=== PATIENT | male | born 1935 | race African-American/Black ===

== ENCOUNTER 2023-06-28 14:49 | Emergency (ER) | payer MEDICARE, MEDICAID ==
[~2023-06-28] VITALS: Ht 165.1 cm; Wt 87.0 kg
[~2023-06-28 14:49] MED LIST: ASPI-1497 PO; BENA-8 PO; PROVASTATIN PO; ROSU5TAB PO
[2023-06-28 14:55] VITALS: BP 153/68; TEMP 98.7; O2SAT 98
[2023-06-28 14:59] VITALS: PULSE 81; RESP 20
[2023-06-28 17:09] LABS: BASOPHILS % 0.4 % (0.0-2.0); EOSINOPHILS % 1.9 % (0.0-5.0); HEMATOCRIT. 51.9 % (42.0-52.0); HEMOGLOBIN. 17.4 g/dL (14.0-18.0); LYMPHOCYTES % 15.1 % (20.0-50.0); MEAN CORPUSCULAR HEMOGLOBIN 30.9 pg (28.0-32.0); MEAN CORPUSCULAR HGB CONC 33.5 g/dL (31.0-37.0); MEAN CORPUSCULAR VOLUME 92.2 fL (80.0-94.0); MEAN PLATELET VOLUME 7.7 fl (7.4-10.4); MONOCYTES % 9.3 % (2.0-8.0); NEUTROPHILS % 73.3 % (40.0-76.0); PLATELET 131 x1000/uL (130-400); RED BLOOD CELL COUNT 5.62 mill/uL (4.7-6.1); RED CELL DISTRIBUTION WIDTH 14.3 % (11.6-14.6); WHITE BLOOD COUNT 5.9 x1000/uL (4.5-11.0)
[2023-06-28 17:15] LABS: CHLORIDE 98 mEq/L (98-107); INDEX HEMOLYSI 1 (1-3); INDEX ICTERIC 1 (1-4); INDEX LIPEMIC 1 (1-3); POTASSIUM 4.2 mEq/L (3.5-5.1); SODIUM 132 mEq/L (136-145)
[2023-06-28 17:24] LABS: ALANINE AMINOTRANSFERASE 26 IU/L (13-61); ALBUMIN 3.6 g/dL (3.4-5.0); ASPARTATE AMINOTRANSFERASE 19 IU/L (15-37); BILIRUBIN TOTAL 0.9 mg/dL (0.1-1.0); CALCIUM 8.5 mg/dL (8.5-10.1); CARBON DIOXIDE 29 mEq/L (21-32); CREATININE 1.2 mg/dL (0.6-1.3); GLUCOSE 96 mg/dL (70-105); PROTEIN TOTAL 7.8 g/dL (6.0-8.3); TROPONIN I HIGH SENSITIVITY 24 ng/L (<78); UREA NITROGEN BLOOD 11 mg/dL (7-21)
[2023-06-29] MEDS ORDERED: ROSU5TAB PO (14:35)
[2023-06-29] MEDS ORDERED: DORZ10DR8 EACHEYE (14:35)
[2023-06-29] MEDS ORDERED: TAMS-11 PO (14:35)
[2023-06-29] MEDS ORDERED: LORA10TA7 PO (14:35)
[2023-06-29] MEDS ORDERED: FURO20TA4 PO (14:35)
[2023-06-29] MEDS ORDERED: BENA10TA74 PO (14:35)
[2023-06-29] MEDS ORDERED: FOLI-43 PO (14:35)
[2023-06-29] MEDS ORDERED: TIMO15DR12 EACHEYE (14:35)
[2023-06-29] MEDS ORDERED: FERR-63 PO (14:35)
[2023-06-29] MEDS ORDERED: DICL50TA9 PO (16:39)
[2023-06-29] MEDS ORDERED: CARV3.1242 PO (16:39)
== END 2023-06-28 21:27 | disposition left against medical advice (07) ==
LOC: ER 14:59
DX: Z53.21 Procedure and treatment not carried out due to patient leaving prior to being seen by health care provider (principal)
CPT/HCPCS: 36415; 80053; 84484; 85025; 93005; 99281

== ENCOUNTER 2024-03-15 17:42 | Emergency (ER) | payer MEDICARE, MEDICAID ==
[~2024-03-15] VITALS: Ht 195.6 cm; Wt 82.0 kg
[~2024-03-15 17:42] MED LIST changes: +ASPI-1406 PO; -ASPI-1497 PO; +AZIT500T MT; -BENA-8 PO; +BENA10TA74 PO; +CARV3.1242 PO; +DICL50TA9 PO; +DORZ10DR8 EACHEYE; +FERR-63 PO; +FOLI-43 PO; +FURO20TA4 PO; +P20 MT; +PRED5DRO22; -PROVASTATIN PO; +TAMS-11 PO; +TIMO15DR12 EACHEYE; +VIT1CAPS26 MT
[2024-03-15 17:45] VITALS: O2SAT 97
[2024-03-15 18:10] VITALS: TEMP 97.7
[2024-03-15 19:06] LABS: CLARITY URINE CLEAR (CLEAR); COLOR URINE YELLOW (YELLOW); GLUCOSE URINE NEGATIVE (NEGATIVE); KETONES URINE NEGATIVE (NEGATIVE); LEUKOCYTE ESTERASE URINE NEGATIVE (NEGATIVE); NITRITE URINE NEGATIVE (NEGATIVE); OCCULT BLOOD URINE 2+ (NEGATIVE); PH URINE 5.5 (4.5-8.0); PROTEIN URINE NEGATIVE (NEGATIVE); SPECIFIC GRAVITY URINE 1.014 (1.005-1.030); UROBILINOGEN URINE 0.2 E.U./dL (0.2-1.0)
[2024-03-15 19:59] LABS: BACTERIA URINE NONE SEEN; SQUAMOUS EPITHELIAL CELL URINE NONE SEEN /lpf (RARE/1+); WBC URINE 0-2 /hpf (0-2)
[2024-03-15 20:53] VITALS: BP 167/77; PULSE 81; RESP 23
== END 2024-03-15 23:56 | disposition home or self-care (01) ==
LOC: ER 17:42
DX: R33.9 Retention of urine, unspecified (principal); E78.00 Pure hypercholesterolemia, unspecified; I10 Essential (primary) hypertension; I25.2 Old myocardial infarction; Z98.890 Other specified postprocedural states; Z79.899 Other long term (current) drug therapy
CPT/HCPCS: 81003; 51702; 99284; Z7610

== ENCOUNTER 2024-03-17 11:44 | Emergency (ER) | payer MEDICARE, MEDICAID ==
[~2024-03-17] VITALS: Ht 172.7 cm; Wt 74.0 kg
[2024-03-17 11:38] VITALS: O2SAT 97
[2024-03-17 12:51] LABS: BASOPHILS % 0.5 % (0.0-2.0); EOSINOPHILS % 3.3 % (0.0-5.0); HEMATOCRIT. 48.8 % (42.0-52.0); HEMOGLOBIN. 16.1 g/dL (14.0-18.0); MEAN CORPUSCULAR HEMOGLOBIN 29.9 pg (28.0-32.0); MEAN CORPUSCULAR VOLUME 90.9 fL (80.0-94.0); MEAN PLATELET VOLUME 8.4 fl (7.4-10.4); MONOCYTES % 13.4 % (2.0-8.0); NEUTROPHILS % 64.8 % (40.0-76.0); PLATELET 181 x1000/uL (130-400); RED BLOOD CELL COUNT 5.38 mill/uL (4.7-6.1); RED CELL DISTRIBUTION WIDTH 16.5 % (11.6-14.6); WHITE BLOOD COUNT 8.7 x1000/uL (4.5-11.0)
[2024-03-17 13:09] LABS: CALCIUM 9.3 mg/dL (8.7-10.4)
[2024-03-17 13:14] LABS: CREATININE 1.4 mg/dL (0.6-1.3)
[2024-03-17 16:21] LABS: ALANINE AMINOTRANSFERASE 17 IU/L (10-49)
[2024-03-17 16:22] LABS: ALBUMIN 4.2 g/dL (3.2-4.8); ASPARTATE AMINOTRANSFERASE 29 IU/L (<34); BILIRUBIN DIRECT 0.4 mg/dL (<=3.0); BILIRUBIN TOTAL 0.9 mg/dL (0.1-1.0)
[2024-03-17 16:39] LABS: CLARITY URINE CLEAR (CLEAR); COLOR URINE ORANGE (YELLOW); GLUCOSE URINE NEGATIVE (NEGATIVE); KETONES URINE NEGATIVE (NEGATIVE); LEUKOCYTE ESTERASE URINE TRACE (NEGATIVE); NITRITE URINE NEGATIVE (NEGATIVE); OCCULT BLOOD URINE 3+ (NEGATIVE); PH URINE 5.5 (4.5-8.0); PROTEIN URINE 1+ (NEGATIVE); SPECIFIC GRAVITY URINE 1.007 (1.005-1.030); UROBILINOGEN URINE 0.2 E.U./dL (0.2-1.0)
[2024-03-17 17:06] LABS: BACTERIA URINE TRACE; SQUAMOUS EPITHELIAL CELL URINE NONE SEEN /lpf (RARE/1+); WBC URINE 0-2 /hpf (0-2)
[2024-03-17] MEDS ORDERED: CEFP100T8 MT (17:41)
[2024-03-17 17:54] VITALS: BP 136/64; PULSE 72; RESP 16; TEMP 98.4
== END 2024-03-17 18:59 | disposition home or self-care (01) ==
LOC: ER 11:44
DX: R33.9 Retention of urine, unspecified (principal); E78.00 Pure hypercholesterolemia, unspecified; I10 Essential (primary) hypertension; I25.2 Old myocardial infarction; Z79.899 Other long term (current) drug therapy
CPT/HCPCS: 36415; 74176; 80048; 80076; 81003; 85025; 99284

== ENCOUNTER 2024-03-20 14:20 | Emergency (ER) | payer MEDICARE, MEDICAID ==
[~2024-03-20] VITALS: Ht 177.8 cm; Wt 92.0 kg
[~2024-03-20 14:20] MED LIST changes: +CEFP100T8 MT
[2024-03-20 14:27] VITALS: BP 143/69; PULSE 67; RESP 18; TEMP 98.7; O2SAT 97
== END 2024-03-20 15:16 | disposition home or self-care (01) ==
LOC: ER 14:20
DX: T83.9XXA Unspecified complication of genitourinary prosthetic device, implant and graft, initial encounter (principal); E78.00 Pure hypercholesterolemia, unspecified; I25.2 Old myocardial infarction; I10 Essential (primary) hypertension; E78.5 Hyperlipidemia, unspecified; Z79.899 Other long term (current) drug therapy; Z79.82 Long term (current) use of aspirin; Z98.890 Other specified postprocedural states
CPT/HCPCS: 99281

== ENCOUNTER 2024-04-06 16:27 | Emergency (ER) | payer MEDICARE, MEDICAID ==
[~2024-04-06] VITALS: Ht 172.7 cm; Wt 75.0 kg
[~2024-04-06 16:27] MED LIST changes: -AZIT500T MT; -CEFP100T8 MT; -DICL50TA9 PO; +DUTA0.5C2 MT; -FERR-63 PO; -FURO20TA4 PO; -P20 MT; +TAMS-11 MT; -TAMS-11 PO
[2024-04-06 16:31] VITALS: TEMP 97.5; O2SAT 96
[2024-04-06 17:18] LABS: CLARITY URINE CLEAR (CLEAR); COLOR URINE YELLOW (YELLOW); GLUCOSE URINE NEGATIVE (NEGATIVE); KETONES URINE NEGATIVE (NEGATIVE); LEUKOCYTE ESTERASE URINE NEGATIVE (NEGATIVE); NITRITE URINE NEGATIVE (NEGATIVE); OCCULT BLOOD URINE 1+ (NEGATIVE); PROTEIN URINE NEGATIVE (NEGATIVE); SPECIFIC GRAVITY URINE 1.006 (1.005-1.030); UROBILINOGEN URINE 0.2 E.U./dL (0.2-1.0)
[2024-04-06 17:46] LABS: BACTERIA URINE TRACE; SQUAMOUS EPITHELIAL CELL URINE RARE /lpf (RARE/1+); WBC URINE 0-2 /hpf (0-2)
[2024-04-06 18:20] LABS: EOSINOPHILS % 6.8 % (0.0-5.0); HEMATOCRIT. 44.9 % (42.0-52.0); HEMOGLOBIN. 15.1 g/dL (14.0-18.0); LYMPHOCYTES % 43.9 % (20.0-50.0); MEAN CORPUSCULAR HEMOGLOBIN 30.7 pg (28.0-32.0); MEAN CORPUSCULAR HGB CONC 33.6 g/dL (31.0-37.0); MEAN CORPUSCULAR VOLUME 91.3 fL (80.0-94.0); MEAN PLATELET VOLUME 8.1 fl (7.4-10.4); MONOCYTES % 8.9 % (2.0-8.0); NEUTROPHILS % 39.4 % (40.0-76.0); PLATELET 218 x1000/uL (130-400); RED BLOOD CELL COUNT 4.92 mill/uL (4.7-6.1); RED CELL DISTRIBUTION WIDTH 14.6 % (11.6-14.6); WHITE BLOOD COUNT 4.1 x1000/uL (4.5-11.0)
[2024-04-06 18:30] LABS: CHLORIDE 106 mEq/L (98-107); POTASSIUM 4.1 mEq/L (3.5-5.1); SODIUM 137 mEq/L (136-145)
[2024-04-06 18:31] LABS: CALCIUM 8.8 mg/dL (8.7-10.4); CARBON DIOXIDE 27 mEq/L (21-32)
[2024-04-06 18:36] LABS: GLUCOSE 136 mg/dL (70-105); UREA NITROGEN BLOOD 5 mg/dL (9-23)
[2024-04-06] MEDS ORDERED: CEFP200T13 MT (19:41)
[2024-04-06 20:05] VITALS: BP 134/63; PULSE 56; RESP 15
== END 2024-04-06 20:05 | disposition home or self-care (01) ==
LOC: ER 16:27
DX: R33.9 Retention of urine, unspecified (principal); I10 Essential (primary) hypertension; Z79.899 Other long term (current) drug therapy
CPT/HCPCS: 80048; 81003; 85025; 36415; 51702; 99284; Z7610

== ENCOUNTER 2025-01-18 04:03 | Inpatient (IN) | payer MEDICARE, MEDICAID ==
[~2025-01-18] VITALS: Ht 172.7 cm; Wt 83.0 kg
[~2025-01-18 04:03] MED LIST changes: +CEFP200T13 MT; -TAMS-11 MT; +TAMS-54 MT
[2025-01-18] MEDS: ALBUTEROL (0.083%) 2.5MG/3ML NEB HHN STA (04:41)
[2025-01-18] MEDS: IPRATROPIUM BROMIDE (0.02%) 0.5MG/2.5ML NEB HHN STA (04:41)
[2025-01-18 04:43] VITALS: PULSE 98; RESP 18; O2SAT 97
[2025-01-18] MEDS: METHYLPREDNISOLONE SOD SUCC 125MG/2ML (ACT-O-VIAL) IV STA (04:46)
[2025-01-18 05:05] LABS: BASOPHILS % 1.2 % (0.0-2.0); EOSINOPHILS % 10.9 % (0.0-5.0); HEMATOCRIT. 48.9 % (42.0-52.0); HEMOGLOBIN. 16.9 g/dL (14.0-18.0); LYMPHOCYTES % 35.8 % (20.0-50.0); MEAN CORPUSCULAR HEMOGLOBIN 32.6 pg (28.0-32.0); MEAN CORPUSCULAR HGB CONC 34.6 g/dL (31.0-37.0); MEAN CORPUSCULAR VOLUME 94.2 fL (80.0-94.0); MEAN PLATELET VOLUME 8.1 fl (7.4-10.4); MONOCYTES % 7.8 % (2.0-8.0); NEUTROPHILS % 44.3 % (40.0-76.0); PLATELET 239 x1000/uL (130-400); RED BLOOD CELL COUNT 5.19 mill/uL (4.7-6.1); RED CELL DISTRIBUTION WIDTH 14.2 % (11.6-14.6); WHITE BLOOD COUNT 7.5 x1000/uL (4.5-11.0)
[2025-01-18 05:11] LABS: CHLORIDE 97 mEq/L (98-107); POTASSIUM 3.6 mEq/L (3.5-5.1); SODIUM 137 mEq/L (136-145)
[2025-01-18 05:12] LABS: CALCIUM 9.3 mg/dL (8.7-10.4); CARBON DIOXIDE 34 mEq/L (21-32)
[2025-01-18 05:17] LABS: CREATININE 1.2 mg/dL (0.6-1.3); GLUCOSE 174 mg/dL (70-105); UREA NITROGEN BLOOD 16 mg/dL (9-23)
[2025-01-18 05:18] LABS: ETHANOL BLOOD < 10 mg/dL (<10); INR 1.1; PARTIAL THROMBOPLASTIN TIME 25.4 sec (23.4-31.0); PROTHROMBIN TIME 11.9 sec (9.6-11.0); TROPONIN I HIGH SENSITIVITY 12 ng/L (3.0-53)
[2025-01-18] MEDS ORDERED: BENZONATATE 100MG CAPSULE PO PRN (09:15)
[2025-01-18] MEDS ORDERED: IPRATROPIUM/ALBUTEROL 0.5-3(2.5)MG/3ML NEB HHN PRN (09:15)
[2025-01-18] MEDS ORDERED: HYDRALAZINE 20MG/ML VIAL IV PRN (09:30)
[2025-01-18 09:53] LABS: BG BASE EXCESS 6.3 mmol/L (-2.0-3.0); BG CARBOXYHEMOGLOBIN 0.3 % (0.5-1.5); BG DEOXYHEMOGLOBIN 1.4 % (0.0-5.0); BG FRACTION INSPIRED OXYGEN 32; BG HCO3 ACT 33.9 mmol/L (21.0-28.0); BG METHEMOGLOBIN 0.3 % (0.5-1.5); BG OXYGEN SATURATION 98.6 % (94.0-98.0); BG PCO2 58.2 mmHg (35.0-48.0); BG PH 7.383 (7.350-7.450); BG PO2 125.9 mmHg (83.0-108.0); BG SAMPLE SITE RIGHT RADIAL; BG TOTAL HEMOGLOBIN 18.4 g/dL (13.5-17.5); BG TOTAL RESPIRATORY RATE 26 b/min; BG VENT MODE NASAL CANNULA
[2025-01-18 09:54] LABS: TROPONIN I HIGH SENSITIVITY 10 ng/L (3.0-53)
[2025-01-18 09:57] LABS: THYROID STIMULATING HORMONE 0.31 uIU/mL (0.55-4.78)
[2025-01-18] MEDS: ENOXAPARIN 40MG/0.4ML SYR SUBCUT SCH (10:34)
[2025-01-18] MEDS: MAGNESIUM 2 G PREMIX 50 ML IV NR (10:42)
[2025-01-18] MEDS: METHYLPREDNISOLONE SOD SUCC 40MG/ML (ACT-O-VIAL) IV SCH ×2 (10:44→22:43)
[2025-01-18] MEDS ORDERED: MAGNESIUM/ALUMINUM HYDROXIDE/SIMETHICONE 30ML UDC PO PRN (10:45)
[2025-01-18] MEDS ORDERED: DEXTROSE 50% WATER 50ML SYRINGE IV PRN ×2 (10:45→22:00)
[2025-01-18] MEDS ORDERED: HYDROCODONE/ACETAMINOPHEN 5/325MG TABLET PO PRN (10:45)
[2025-01-18] MEDS ORDERED: ACETAMINOPHEN 325MG TABLET PO PRN ×2 (10:45)
[2025-01-18] MEDS ORDERED: ONDANSETRON HCL 4MG/2ML INJ IV PRN (10:45)
[2025-01-18] MEDS ORDERED: CLONIDINE 0.1MG TABLET PO PRN (10:45)
[2025-01-18] MEDS ORDERED: MORPHINE SULFATE 2 MG/ML INJ (NOT FOR IM USE) IV PRN (10:45)
[2025-01-18] MEDS ORDERED: NALOXONE HCL 0.4MG/ML VIAL IV PRN (11:00)
[2025-01-18 11:30] VITALS: PULSE 71; RESP 24
[2025-01-18] MEDS: IPRATROPIUM/ALBUTEROL 0.5-3(2.5)MG/3ML NEB HHN SCH (11:30)
[2025-01-18] MEDS: BLOOD SUGAR DIAGNOSTIC STRIP TEST SCH (14:00)
[2025-01-18] MEDS ORDERED: IPRATROPIUM/ALBUTEROL 0.5-3(2.5)MG/3ML NEB HHN SCH (14:00)
[2025-01-18 17:05] LABS: T4 FREE 1.26 ng/dL (0.89-1.76)
[2025-01-18] MEDS: INSULIN LISPRO 100 UNITS/ML SUBCUT SCH (17:15)
[2025-01-18 20:00] VITALS: BP 109/47; PULSE 62; RESP 18; TEMP 36.5; O2SAT 98
[2025-01-18] MEDS ORDERED: ATORVASTATIN CALCIUM 10MG TABLET PO SCH (21:00)
[2025-01-18 21:31] VITALS: PULSE 74; RESP 20
[2025-01-18] MEDS: ATORVASTATIN CALCIUM 40MG TABLET PO SCH (22:44)
[2025-01-18] MEDS: FAMOTIDINE 20MG TABLET PO SCH (22:44)
[2025-01-18] MEDS: INSULIN REGULAR (HUMULIN R) 1000UNITS/10ML VIAL IV NR (22:46)
[2025-01-18 23:48] LABS: CREATINE KINASE 95 IU/L (46-171)
[2025-01-19] VITALS (9 sets, daily range): BP systolic 111–136; BP diastolic 48–78; PULSE 57–99; RESP 18–20; TEMP 36.2–36.6; O2SAT 96–98
[2025-01-19 06:35] LABS: CARBON DIOXIDE 31 mEq/L (21-32); CHLORIDE 96 mEq/L (98-107); POTASSIUM 3.4 mEq/L (3.5-5.1); SODIUM 135 mEq/L (136-145)
[2025-01-19 06:36] LABS: CALCIUM 9.2 mg/dL (8.7-10.4)
[2025-01-19 06:40] LABS: GLUCOSE 193 mg/dL (70-105)
[2025-01-19 06:41] LABS: TRIGLYCERIDE 75 mg/dL (0-150); UREA NITROGEN BLOOD 17 mg/dL (9-23)
[2025-01-19 06:42] LABS: CHOLESTEROL 121 mg/dL (<200); LDL CHOLESTEROL 59 mg/dL (5-100)
[2025-01-19 06:43] LABS: HDL CHOLESTEROL 48 mg/dL (>55)
[2025-01-19 06:49] LABS: BASOPHILS % 0.1 % (0.0-2.0); HEMATOCRIT. 45.3 % (42.0-52.0); HEMOGLOBIN. 15.7 g/dL (14.0-18.0); LYMPHOCYTES % 11.9 % (20.0-50.0); MEAN CORPUSCULAR HEMOGLOBIN 32.3 pg (28.0-32.0); MEAN CORPUSCULAR HGB CONC 34.6 g/dL (31.0-37.0); MEAN CORPUSCULAR VOLUME 93.2 fL (80.0-94.0); MEAN PLATELET VOLUME 8.3 fl (7.4-10.4); PLATELET 208 x1000/uL (130-400); RED BLOOD CELL COUNT 4.85 mill/uL (4.7-6.1); RED CELL DISTRIBUTION WIDTH 13.9 % (11.6-14.6); WHITE BLOOD COUNT 15.1 x1000/uL (4.5-11.0)
[2025-01-19] MEDS: BLOOD SUGAR DIAGNOSTIC STRIP TEST SCH (07:28)
[2025-01-19] MEDS: INSULIN LISPRO 100 UNITS/ML SUBCUT SCH (09:15)
[2025-01-19] MEDS: BUMETANIDE 1MG TABLET PO SCH (10:07)
[2025-01-19] MEDS: AMLODIPINE 5MG TABLET PO SCH (10:08)
[2025-01-19] MEDS: TAMSULOSIN HCL 0.4MG SR CAPSULE PO SCH (10:09)
[2025-01-19] MEDS: ASPIRIN 81MG TABLET PO SCH (10:09)
[2025-01-19] MEDS: KCL 20MEQ/100ML PREMIX 100 ML IV NR (13:22)
[2025-01-19] MEDS: DOCUSATE SODIUM 100MG CAPSULE PO PRN (13:34)
[2025-01-19] MEDS: GUAIFENESIN 200MG/10ML SUGAR FREE UDC PO PRN (13:34)
[2025-01-19] MEDS: POTASSIUM CHLORIDE 20MEQ TABLET SR PO NR (15:36)
[2025-01-19] MEDS: FUROSEMIDE 40MG TABLET PO NR (15:36)
[2025-01-19] MEDS: FUROSEMIDE 40MG/4ML VIAL IVP NR (16:30)
[2025-01-19 18:11] LABS: INFLUENZA TYPE A Presumptive Negative (Pres. Neg.)
[2025-01-19 18:12] LABS: INFLUENZA TYPE B Presumptive Negative (Pres. Neg.); RESPIRATORY SYNCYTIAL VIRUS Not Detected (Not Detectd)
[2025-01-19 19:15] LABS: TROPONIN I HIGH SENSITIVITY 11 ng/L (3.0-53)
[2025-01-19] MEDS: GUAIFENESIN 200MG 200 MG TABLET PO SCH (19:21)
[2025-01-19] MEDS: DORZOLAMIDE 2% OPHTH 10 ML BOTTLE EACHEYE SCH (20:46)
[2025-01-19] MEDS: TIMOLOL MALEATE 0.5% OPHTH DROPS 5ML EACHEYE SCH (20:47)
[2025-01-19] MEDS ORDERED: CARVEDILOL 3.125 MG TABLET PO SCH (21:00)
[2025-01-19] MEDS: INSULIN GLARGINE 100 UNITS/ML SUBCUT SCH (22:49)
[2025-01-20] VITALS (10 sets, daily range): BP systolic 104–131; BP diastolic 51–68; PULSE 54–82; RESP 15–20; TEMP 35.6–36.7; O2SAT 96–100
[2025-01-20 01:20] LABS: TROPONIN I HIGH SENSITIVITY 9 ng/L (3.0-53)
[2025-01-20 07:05] LABS: CARBON DIOXIDE 32 mEq/L (21-32); CHLORIDE 97 mEq/L (98-107); POTASSIUM 3.9 mEq/L (3.5-5.1); SODIUM 137 mEq/L (136-145)
[2025-01-20 07:06] LABS: BASOPHILS % 0.1 % (0.0-2.0); HEMATOCRIT. 44.5 % (42.0-52.0); HEMOGLOBIN. 15.2 g/dL (14.0-18.0); MEAN CORPUSCULAR HEMOGLOBIN 32.1 pg (28.0-32.0); MEAN CORPUSCULAR HGB CONC 34.1 g/dL (31.0-37.0); MEAN CORPUSCULAR VOLUME 94.1 fL (80.0-94.0); MEAN PLATELET VOLUME 8.4 fl (7.4-10.4); MONOCYTES % 1.8 % (2.0-8.0); NEUTROPHILS % 86.1 % (40.0-76.0); PLATELET 197 x1000/uL (130-400); RED BLOOD CELL COUNT 4.73 mill/uL (4.7-6.1); RED CELL DISTRIBUTION WIDTH 14.3 % (11.6-14.6); WHITE BLOOD COUNT 11.3 x1000/uL (4.5-11.0)
[2025-01-20 07:07] LABS: CALCIUM 8.8 mg/dL (8.7-10.4)
[2025-01-20 07:11] LABS: GLUCOSE 199 mg/dL (70-105)
[2025-01-20 07:12] LABS: UREA NITROGEN BLOOD 18 mg/dL (9-23)
[2025-01-20] MEDS: LACTULOSE 20G/30ML UDC PO SCH (08:30)
[2025-01-20] MEDS ORDERED: MAGNESIUM 1 G PREMIX 100 ML IV ONE (09:15)
[2025-01-20] MEDS: BUDESONIDE 0.5MG/2ML NEB HHN NR (09:50)
[2025-01-20] MEDS: BUMETANIDE 1MG TABLET PO SCH (10:01)
[2025-01-20] MEDS: DUTASTERIDE 0.5MG CAPSULE PO SCH (10:02)
[2025-01-20] MEDS: MAGNESIUM 2 G PREMIX 50 ML IV NR (10:10)
[2025-01-20] MEDS ORDERED: TC1U15 TP (10:46)
[2025-01-20] MEDS: BENZONATATE 200MG CAPSULE PO NR (11:00)
[2025-01-20 13:07] LABS: ANTI-NUCLEAR ANTIBODIES DIRECT Negative (Negative)
[2025-01-20] MEDS: LOSARTAN 25 MG TABLET PO SCH (13:19)
[2025-01-20] MEDS: TRIAMCINOLONE ACETONIDE 0.1 % OINT 15GM TOP SCH (13:19)
[2025-01-20] MEDS: GUAIFENESIN 600MG ER TABLET PO SCH (20:20)
[2025-01-21] VITALS (10 sets, daily range): BP systolic 91–125; BP diastolic 39–52; PULSE 56–83; RESP 16–22; TEMP 36.4–37; O2SAT 94–98
[2025-01-21] MEDS: ACETYLCYSTEINE 200MG/ML 20% VIAL 4ML INH SCH (04:13)
[2025-01-21] MEDS: GUAIFENESIN 200MG/10ML SUGAR FREE UDC PO PRN (05:16)
[2025-01-21] MEDS: CLOPIDOGREL 75MG TABLET PO SCH (08:28)
[2025-01-21] MEDS: CARVEDILOL 3.125 MG TABLET PO SCH (08:34)
[2025-01-21] MEDS ORDERED: AZITHROMYCIN 500MG/250ML 250 ML IV SCH (11:00)
[2025-01-21] MEDS: AZITHROMYCIN 500MG/250ML 250 ML IV SCH (11:31)
[2025-01-21] MEDS: INSULIN GLARGINE 100 UNITS/ML SUBCUT SCH (11:36)
[2025-01-21 11:58] LABS: BASOPHILS % 0.1 % (0.0-2.0); HEMATOCRIT. 49.6 % (42.0-52.0); HEMOGLOBIN. 16.8 g/dL (14.0-18.0); LYMPHOCYTES % 8.7 % (20.0-50.0); MEAN CORPUSCULAR HGB CONC 33.8 g/dL (31.0-37.0); MEAN CORPUSCULAR VOLUME 94.5 fL (80.0-94.0); MEAN PLATELET VOLUME 8.7 fl (7.4-10.4); MONOCYTES % 3.6 % (2.0-8.0); NEUTROPHILS % 87.6 % (40.0-76.0); PLATELET 213 x1000/uL (130-400); RED BLOOD CELL COUNT 5.24 mill/uL (4.7-6.1); WHITE BLOOD COUNT 10.6 x1000/uL (4.5-11.0)
[2025-01-21 12:14] LABS: CHLORIDE 96 mEq/L (98-107); POTASSIUM 3.5 mEq/L (3.5-5.1); SODIUM 136 mEq/L (136-145)
[2025-01-21 12:15] LABS: CARBON DIOXIDE 31 mEq/L (21-32)
[2025-01-21 12:16] LABS: CALCIUM 9.2 mg/dL (8.7-10.4)
[2025-01-21 12:20] LABS: CREATININE 1.2 mg/dL (0.6-1.3); GLUCOSE 298 mg/dL (70-105)
[2025-01-21 12:21] LABS: UREA NITROGEN BLOOD 23 mg/dL (9-23)
[2025-01-21] MEDS: INSULIN REGULAR (HUMULIN R) 1000UNITS/10ML VIAL IV NR (13:39)
[2025-01-21] MEDS ORDERED: ACETAZOLAMIDE SODIUM 500MG/VIAL IV NR (18:30)
[2025-01-22] VITALS (8 sets, daily range): BP systolic 112–129; BP diastolic 49–58; PULSE 53–74; RESP 16–22; TEMP 36.4–36.9; O2SAT 96–98
[2025-01-22] MEDS ORDERED: IPRA3AMP9 HHN (11:58)
[2025-01-22] MEDS ORDERED: GUAI600T44 PO (11:58)
[2025-01-22] MEDS ORDERED: METH4TAB95 MT (11:58)
[2025-01-22] MEDS ORDERED: DEXTL PO (11:58)
[2025-01-22] MEDS ORDERED: AZIT500T MT (11:58)
[2025-01-22] MEDS ORDERED: ALBU18HF2 IH (12:10)
[2025-01-22] MEDS: INSULIN LISPRO 100 UNITS/ML SUBCUT SCH (13:47)
[2025-01-22 17:07] LABS: ANTI-MYELOPEROXIDASE AB < 0.2 units (0.0-0.9); ANTI-PROTEINASE 3 ABS < 0.2 units (0.0-0.9)
[2025-01-25 13:08] LABS: IMMUNOGLOBULIN E TOTAL 1913 IU/mL (6-495)
[2025-01-25 17:07] LABS: ATYPICAL P-ANCA <1:20 titer (Neg:<1:20); CYTOPLASMIC C-ANCA <1:20 titer (Neg:<1:20); PERINUCLEAR P-ANCA <1:20 titer (Neg:<1:20)
[2025-01-27 04:10] LABS: *ASPERGILLUS FUMIGATUS IGG 7.3 mg/L (0.0-31.9)
== END 2025-01-22 16:04 | disposition home or self-care (01) | DRG 291 ==
LOC: ER 04:03 → 5WST 06:31
PROVIDERS: ADMIT Internal Medicine; ATTEND Internal Medicine
DX: I11.0 Hypertensive heart disease with heart failure (principal); I50.23 Acute on chronic systolic (congestive) heart failure; J96.01 Acute respiratory failure with hypoxia; J96.02 Acute respiratory failure with hypercapnia; J44.1 Chronic obstructive pulmonary disease with (acute) exacerbation; E87.4 Mixed disorder of acid-base balance; J45.901 Unspecified asthma with (acute) exacerbation; J21.9 Acute bronchiolitis, unspecified; J44.0 Chronic obstructive pulmonary disease with (acute) lower respiratory infection; I42.9 Cardiomyopathy, unspecified; E78.00 Pure hypercholesterolemia, unspecified; I25.10 Atherosclerotic heart disease of native coronary artery without angina pectoris; E11.65 Type 2 diabetes mellitus with hyperglycemia; H54.62 Unqualified visual loss, left eye, normal vision right eye; E87.6 Hypokalemia; N40.1 Benign prostatic hyperplasia with lower urinary tract symptoms; K80.20 Calculus of gallbladder without cholecystitis without obstruction; D72.829 Elevated white blood cell count, unspecified; K59.00 Constipation, unspecified; T38.0X5A Adverse effect of glucocorticoids and synthetic analogues, initial encounter; Z79.899 Other long term (current) drug therapy; Z95.5 Presence of coronary angioplasty implant and graft; Z79.82 Long term (current) use of aspirin; Z79.84 Long term (current) use of oral hypoglycemic drugs; Z86.16 Personal history of COVID-19; Z86.73 Personal history of transient ischemic attack (TIA), and cerebral infarction without residual deficits; Z87.891 Personal history of nicotine dependence; Y92.89 Other specified places as the place of occurrence of the external cause
CPT/HCPCS: 36415; 36600; 70490; 71045; 71250; 80048; 80061; 80320; 82375; 82550; 82785; 82805; 82962; 83036; 83520; 83605; 83735; 83880; 84145; 84439; 84443; 84484; 85025; 85379; 86038; 86256; 86606; 87070; 87252; 87420; 87804; 93005; 93306; 93970; 94070; 94640; 97110; 97116; 97162; 97166; 97530; 99285; A4606; J0456; J1120; J1650; J1815; J2919; J3475; J3480; J7608; J7626; G0480

== ENCOUNTER 2025-08-07 22:55 | Inpatient (IN) | payer MEDICARE, MEDICAID ==
[~2025-08-07] VITALS: Ht 175.3 cm; Wt 88.0 kg
[~2025-08-07 22:55] MED LIST changes: +ALBU18HF2 IH; +AZIT500T MT; -BENA10TA74 PO; -CEFP200T13 MT; +DEXTL PO; +GUAI600T44 PO; +METH4TAB95 MT; -ROSU5TAB PO; +TC1U15 TP
[2025-08-07 23:50] VITALS: PULSE 65; RESP 20; O2SAT 96
[2025-08-07 23:51] LABS: CREATININE 1.2 mg/dL (0.6-1.3); UREA NITROGEN BLOOD 7 mg/dL (9-23)
[2025-08-07] MEDS: IPRATROPIUM BROMIDE (0.02%) 0.5MG/2.5ML NEB HHN ONE (23:51)
[2025-08-07 23:52] LABS: TROPONIN I HIGH SENSITIVITY 22 ng/L (3.0-53)
[2025-08-07 23:53] LABS: ASPARTATE AMINOTRANSFERASE 41 IU/L (<34); BILIRUBIN DIRECT 0.2 mg/dL (<=3.0); BILIRUBIN TOTAL 0.7 mg/dL (0.1-1.0); PROTEIN TOTAL 6.7 g/dL (6.0-8.3)
[2025-08-08] VITALS (10 sets, daily range): BP systolic 98–148; BP diastolic 41–89; PULSE 64–86; RESP 17–20; TEMP 36.1–36.9184; O2SAT 96–100
[2025-08-08] MEDS: METHYLPREDNISOLONE SOD SUCC 125MG/2ML (ACT-O-VIAL) IV SCH (01:18)
[2025-08-08] MEDS: KCL 20MEQ/100ML PREMIX 100 ML IV NR (01:18)
[2025-08-08] MEDS ORDERED: MAGNESIUM/ALUMINUM HYDROXIDE/SIMETHICONE 30ML UDC PO PRN (02:15)
[2025-08-08] MEDS ORDERED: DOCUSATE SODIUM 100MG CAPSULE PO PRN (02:15)
[2025-08-08] MEDS ORDERED: IPRATROPIUM/ALBUTEROL 0.5-3(2.5)MG/3ML NEB HHN PRN (02:15)
[2025-08-08] MEDS ORDERED: DEXTROSE 50% WATER 50ML SYRINGE IV PRN ×2 (02:15→13:00)
[2025-08-08] MEDS ORDERED: CLONIDINE 0.1MG TABLET PO PRN (02:15)
[2025-08-08] MEDS ORDERED: ONDANSETRON HCL 4MG/2ML INJ IV PRN (02:15)
[2025-08-08] MEDS ORDERED: ACETAMINOPHEN 325MG TABLET PO PRN ×2 (02:15)
[2025-08-08] MEDS ORDERED: GUAIFENESIN 200MG/10ML SUGAR FREE UDC PO PRN (02:15)
[2025-08-08] MEDS ORDERED: POTASSIUM CHLORIDE 20MEQ/PACKET PO NR (02:15)
[2025-08-08 02:20] LABS: INR 1.1
[2025-08-08 02:36] LABS: *AMPHETAMINES SCREEN URINE NEGATIVE (NEGATIVE); *BARBITURATES SCREEN URINE NEGATIVE (NEGATIVE); *BENZODIAZEPINES SCREEN URINE NEGATIVE (NEGATIVE); *COCAINE SCREEN URINE NEGATIVE (NEGATIVE); CANNABINOID URINE SCREEN NEGATIVE (NEGATIVE); METHADONE URINE SCREEN NEGATIVE (NEGATIVE); OPIATES URINE SCREEN NEGATIVE (NEGATIVE); PHENCYCLIDINE URINE SCREEN NEGATIVE (NEGATIVE)
[2025-08-08 02:37] LABS: ECSTASY MDMA SCREEN URINE NEGATIVE (NEGATIVE)
[2025-08-08 02:40] LABS: CLARITY URINE CLEAR (CLEAR); COLOR URINE YELLOW (YELLOW); GLUCOSE URINE 3+ (NEGATIVE); KETONES URINE NEGATIVE (NEGATIVE); LEUKOCYTE ESTERASE URINE NEGATIVE (NEGATIVE); NITRITE URINE NEGATIVE (NEGATIVE); OCCULT BLOOD URINE NEGATIVE (NEGATIVE); PH URINE 5.5 (4.5-8.0); PROTEIN URINE NEGATIVE (NEGATIVE); SPECIFIC GRAVITY URINE 1.021 (1.005-1.030); UROBILINOGEN URINE 1.0 E.U./dL (0.2-1.0)
[2025-08-08] MEDS: IPRATROPIUM/ALBUTEROL 0.5-3(2.5)MG/3ML NEB HHN SCH (03:30)
[2025-08-08] MEDS: AZITHROMYCIN 500MG/250ML 250 ML IV SCH (03:45)
[2025-08-08] MEDS: POTASSIUM CHLORIDE 20MEQ/PACKET PO NR (03:45)
[2025-08-08] MEDS: METHYLPREDNISOLONE SOD SUCC 40MG/ML (ACT-O-VIAL) IV SCH ×2 (03:46→20:52)
[2025-08-08 04:53] LABS: RBC URINE 0-2 /hpf (0-2); WBC URINE 0-2 /hpf (0-2)
[2025-08-08 04:54] LABS: BACTERIA URINE NONE SEEN; SQUAMOUS EPITHELIAL CELL URINE NONE SEEN /lpf (RARE/1+)
[2025-08-08 05:47] LABS: BASOPHILS % 0.5 % (0.0-2.0); EOSINOPHILS % 8.2 % (0.0-5.0); HEMATOCRIT. 49.7 % (42.0-52.0); HEMOGLOBIN. 17.1 g/dL (14.0-18.0); LYMPHOCYTES % 50.9 % (20.0-50.0); MEAN PLATELET VOLUME 8.9 fl (7.4-10.4); MONOCYTES % 7.0 % (2.0-8.0); NEUTROPHILS % 33.4 % (40.0-76.0); PLATELET 217 x1000/uL (130-400); RED BLOOD CELL COUNT 5.12 mill/uL (4.7-6.1); RED CELL DISTRIBUTION WIDTH 15.3 % (11.6-14.6)
[2025-08-08 05:48] LABS: PHOSPHORUS 2.8 mg/dL (2.5-4.9)
[2025-08-08 07:18] LABS: INFLUENZA TYPE A Presumptive Negative (Pres. Neg.)
[2025-08-08 07:19] LABS: INFLUENZA TYPE B Presumptive Negative (Pres. Neg.)
[2025-08-08 07:21] LABS: RESPIRATORY SYNCYTIAL VIRUS Not Detected (Not Detectd)
[2025-08-08] MEDS: BLOOD SUGAR DIAGNOSTIC STRIP TEST SCH (07:59)
[2025-08-08] MEDS: ACETYLCYSTEINE 200MG/ML 20% VIAL 4ML INH SCH (08:47)
[2025-08-08] MEDS: PANTOPRAZOLE SODIUM 40 MG/VIAL IV SCH (09:11)
[2025-08-08] MEDS: ASPIRIN 81MG TABLET PO SCH (09:11)
[2025-08-08] MEDS: FUROSEMIDE 20MG TABLET PO SCH (09:12)
[2025-08-08] MEDS: ENOXAPARIN 30MG/0.3ML SYR SUBCUT SCH (09:13)
[2025-08-08] MEDS: INSULIN LISPRO 100 UNITS/ML SUBCUT SCH ×2 (09:16→13:28)
[2025-08-08] MEDS: TAMSULOSIN HCL 0.4MG SR CAPSULE PO SCH (09:16)
[2025-08-08] MEDS: POLYETHYLENE GLYCOL 3350 (17GM) 1 DOSE PACK PO SCH (11:08)
[2025-08-08] MEDS: INSULIN GLARGINE 100 UNITS/ML SUBCUT NR (12:24)
[2025-08-08] MEDS: INSULIN REGULAR (HUMULIN R) 1000UNITS/10ML VIAL IV NR (13:18)
[2025-08-08 13:25] LABS: TROPONIN I HIGH SENSITIVITY 18 ng/L (3.0-53)
[2025-08-08] MEDS ORDERED: AZITHROMYCIN 500MG/250ML 250 ML IV SCH (14:00)
[2025-08-08] MEDS: GUAIFENESIN 200MG/10ML SUGAR FREE UDC PO SCH (14:44)
[2025-08-08] MEDS ORDERED: BLOOD SUGAR DIAGNOSTIC STRIP TEST SCH (17:40)
[2025-08-08] MEDS: INSULIN REGULAR (HUMULIN R) 1000UNITS/10ML VIAL IV SCH (17:59)
[2025-08-08] MEDS: INSULIN GLARGINE 100 UNITS/ML SUBCUT SCH (20:54)
[2025-08-09] VITALS (10 sets, daily range): BP systolic 109–124; BP diastolic 43–60; PULSE 65–99; RESP 17–20; TEMP 36.4–37.2; O2SAT 93–97
[2025-08-09 06:28] LABS: CREATININE 1.1 mg/dL (0.6-1.3)
[2025-08-09 06:29] LABS: BASOPHILS % 0.0 % (0.0-2.0); EOSINOPHILS % 0.0 % (0.0-5.0); HEMATOCRIT. 40.6 % (42.0-52.0); HEMOGLOBIN. 14.3 g/dL (14.0-18.0); LYMPHOCYTES % 10.6 % (20.0-50.0); MEAN PLATELET VOLUME 8.6 fl (7.4-10.4); MONOCYTES % 3.0 % (2.0-8.0); NEUTROPHILS % 86.4 % (40.0-76.0); PLATELET 195 x1000/uL (130-400); RED BLOOD CELL COUNT 4.27 mill/uL (4.7-6.1); RED CELL DISTRIBUTION WIDTH 15.0 % (11.6-14.6); TRIGLYCERIDE 58 mg/dL (0-150); UREA NITROGEN BLOOD 12 mg/dL (9-23)
[2025-08-09 06:30] LABS: LDL CHOLESTEROL 36 mg/dL (5-100); T4 FREE 1.43 ng/dL (0.89-1.76)
[2025-08-09] MEDS: AZITHROMYCIN 500MG/250ML 250 ML IV SCH (08:18)
[2025-08-09] MEDS: INSULIN LISPRO 100 UNITS/ML SUBCUT SCH ×2 (08:19→16:59)
[2025-08-09] MEDS: POTASSIUM CHLORIDE 20MEQ TABLET SR PO SCH (09:23)
[2025-08-09] MEDS: KCL 20MEQ/100ML PREMIX 100 ML IV SCH (09:24)
[2025-08-09] MEDS: INSULIN GLARGINE 100 UNITS/ML SUBCUT SCH ×2 (09:24→22:07)
[2025-08-09] MEDS ORDERED: INSULIN GLARGINE 100 UNITS/ML SUBCUT SCH (10:00)
[2025-08-10] VITALS (9 sets, daily range): BP systolic 100–124; BP diastolic 33–55; PULSE 57–76; RESP 16–20; TEMP 36.3–37.6; O2SAT 93–98
[2025-08-10 10:02] LABS: PLATELET 194 x1000/uL (130-400); RED BLOOD CELL COUNT 4.19 mill/uL (4.7-6.1); RED CELL DISTRIBUTION WIDTH 15.8 % (11.6-14.6)
[2025-08-10 10:19] LABS: CREATININE 1.0 mg/dL (0.6-1.3)
[2025-08-10 10:20] LABS: UREA NITROGEN BLOOD 15 mg/dL (9-23)
[2025-08-10] MEDS: INSULIN GLARGINE 100 UNITS/ML SUBCUT SCH (10:34)
[2025-08-10] MEDS: POTASSIUM CHLORIDE 20MEQ TABLET SR PO SCH (11:20)
== END 2025-08-10 18:26 | disposition home health service (06) | DRG 202 ==
LOC: ER 22:55 → 7WST 08-08 01:31 → EDBEDREQTM 08-08 01:55 → EDBEDREQ 08-08 01:55 → EDBEDREQDT 08-08 01:55 → ENRESERV 08-08 04:34 → 7WST 08-08 05:37
PROVIDERS: ADMIT Hospitalist; ATTEND Hospitalist
DX: J20.9 Acute bronchitis, unspecified (principal); I50.42 Chronic combined systolic (congestive) and diastolic (congestive) heart failure; J96.12 Chronic respiratory failure with hypercapnia; I11.0 Hypertensive heart disease with heart failure; J44.0 Chronic obstructive pulmonary disease with (acute) lower respiratory infection; E11.9 Type 2 diabetes mellitus without complications; J44.1 Chronic obstructive pulmonary disease with (acute) exacerbation; E87.6 Hypokalemia; I87.2 Venous insufficiency (chronic) (peripheral); M79.89 Other specified soft tissue disorders; N40.0 Benign prostatic hyperplasia without lower urinary tract symptoms; E78.00 Pure hypercholesterolemia, unspecified; I25.10 Atherosclerotic heart disease of native coronary artery without angina pectoris; Z79.4 Long term (current) use of insulin; Z79.82 Long term (current) use of aspirin; Z79.899 Other long term (current) drug therapy; Z86.16 Personal history of COVID-19; Z87.891 Personal history of nicotine dependence; Z98.61 Coronary angioplasty status
CPT/HCPCS: 36415; 71045; 80048; 80061; 80076; 80305; 80320; 81003; 82550; 82962; 83036; 83735; 83880; 84100; 84439; 84443; 84484; 85025; 85027; 87420; 87804; 93005; 94070; 94640; 94664; 96361; 96365; 96375; 99285; J0456; J1650; J1815; J2470; J2919; J3480; J7608; G0480